=== PATIENT | female | born 1960 | race Caucasian/White ===

== ENCOUNTER 2017-06-25 06:39 | Day surgery (SDC) | payer OTHER ==
[~2017-06-25 06:39] MED LIST: CEFAZOLIN 2 GM/50 ML (PMX) 50 ML IVPB; SOD CHLORIDE 0.9% 1,000 ML IV
[2017-06-25] MEDS ORDERED: SUCCINYLCHOLINE CHLORIDE 100 MG/5 ML SYG IV (07:00)
[2017-06-25] MEDS ORDERED: CEFAZOLIN 1 GM INJ (07:00)
[2017-06-25] MEDS ORDERED: ROCURONIUM 50 MG INJ (07:00)
[2017-06-25] MEDS ORDERED: MIDAZOLAM 1 MG/ML 2 ML INJ (09:05)
[2017-06-25] MEDS ORDERED: FENTAnyl 50 MCG/ML VIAL (09:06)
[2017-06-25] MEDS: BUPIVACAINE 0.25% (MPF) 30 ML INJ (09:30)
[2017-06-25] MEDS ORDERED: HYDROmorphONE 2 MG/ML SYG (09:31)
[2017-06-25] MEDS ORDERED: LIDOCAINE 100 MG SYRINGE (09:42)
[2017-06-25] MEDS ORDERED: PROPOFOL 20 ML (09:42)
[2017-06-25] MEDS ORDERED: SUGAMMADEX SODIUM 200 MG/2 ML VIAL IV (09:47)
[2017-06-25] MEDS ORDERED: KETOROLAC 30 MG INJ IV (10:00)
[2017-06-25] MEDS ORDERED: DIPHENHYDRAMINE 50 MG INJ IV (10:00)
[2017-06-25] MEDS ORDERED: MEPERIDINE 25 MG INJ IV (10:00)
[2017-06-25] MEDS ORDERED: HYDROmorphONE (0.2 MG/ML) 10ML SYG IV ×2 (10:00)
[2017-06-25] MEDS ORDERED: METOCLOPRAMIDE 10 MG INJ IV (10:00)
[2017-06-25] MEDS ORDERED: hydrALAzine 20 MG INJ IV (10:00)
[2017-06-25] MEDS ORDERED: ONDANSETRON 4 MG INJ IV (10:00)
[2017-06-25] MEDS ORDERED: LABETALOL HCL 20MG INJ IV (10:00)
[2017-06-25] MEDS ORDERED: FENTAnyl 50 MCG/ML VIAL IV ×2 (10:00)
[2017-06-25] MEDS: HYDROCODONE/APAP (5/325) TAB PO (11:12)
== END 2017-06-25 11:32 | disposition home or self-care (01) ==
LOC: SDS 06:39
DX: K81.1 Chronic cholecystitis (principal); I10 Essential (primary) hypertension
CPT/HCPCS: 47562; 88304